=== PATIENT | male | born 2000 | race Caucasian/White ===

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

== ENCOUNTER 2023-03-19 11:57 | Emergency (ER) | payer MEDICARE, OTHER ==
[2023-03-19 12:13] VITALS: BP 156/88; PULSE 81; RESP 18; TEMP 98.2; O2SAT 100
[2023-03-19] MEDS ORDERED: TORAdol 30 mg Injection IM ONE (12:39)
[2023-03-19] MEDS ORDERED: Norflex 60 MG/2 ML IM ONE (12:40)
--- NOTE | 2023-03-19 12:45 | ERPHSYRPT ---
- History of Present Illness Time Seen by Provider: 03/19/23 12:40 Source: patient Exam Limitations: no limitations Patient Subjective Stated Complaint: pt reports left lower back pain that radiates down his left leg, pt reports this pain is chronic in nature r/t an injury while in the . pt has begun work up and is awaiting an appointment with neuro. today pt got up from bed to take his dog outside and began having pain while walking, pt reports pain increased and he was no longer able to bear weight. Triage Nursing Assessment: pt is aox3, pupils perrl, afebrile, resps easy and non labored, radial pulses strong and equal, cap refill < 2 seconds, pt skin pink warm dry. no obvious injury/deformity noted, pt with limited/decreased ROM due to pain. Physician History: pt reports left lower back pain that radiates down his left leg, pt reports this pain is chronic in nature r/t an injury while in the . pt has begun work up and is awaiting an appointment with neuro. today pt got up from bed to take his dog outside and began having pain while walking, pt reports pain increased and he was no longer able to bear weight. 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 Patient recently moved to this area and has MRI done to 3 weeks ago at [facility] afterwards he was being referred to neurosurgeon at [facility] but he does not have an appointment at this point of time schedule. Patient was doing okay he wake up suddenly with severe back pain radiating to his left thigh behind the knee because of sudden onset of pain he fell on the floor could not get out so ambulance was called in and patient was brought into the emergency room. Patient was not excruciating pain especially on the left thigh and knee behind area. Patient denies any trouble urination or bowel bladder incontinence. Timing/Duration: today Method of Injury: bending Quality: radiating Back Pain Radiation: buttocks, upper legs Severity of Pain-Max: moderate Severity of Pain-Current: moderate Modifying Factors: Improves With: nothing Associated Symptoms: denies symptoms Previous symptoms: same symptoms as today Allergies/Adverse Reactions: No Known Drug Allergies Allergy (Verified 03/19/23 12:13) Home Medications: Lisinopril/Hydrochlorothiazide [Lisinopril-Hctz 10-12.5 mg Tab] 1 tab PO DAILY 10/09/16 [History] Diclofenac Sodium 50 mg [Voltaren 50 mg] 50 mg PO UD 03/19/23 [History] Hx Tetanus, Diphtheria Vaccination/Date Given: Yes Hx Influenza Vaccination/Date Given: Yes Hx Pneumococcal Vaccination/Date Given: Yes Immunizations Up to Date: Yes Travel Risk - International Travel Have you traveled outside of the country in past 3 weeks: No - Coronavirus Screening Are you exhibiting any of the following symptoms?: No Close contact with a COVID-19 positive Pt in past 14-21 Days: No - Vaccine Status Have you recieved a Covid-19 vaccination: Yes Gta: Unknown - Vaccination Dates Dates if Unknown: UNK - Review of Systems Constitutional: No Fever, No Chills Eyes: No Symptoms Ears, Nose, & Throat: No Symptoms Respiratory: No Cough, No Dyspnea Cardiac: No Chest Pain, No Edema, No Syncope Abdominal/Gastrointestinal: No Abdominal Pain, No Nausea, No Vomiting, No Diarrhea Genitourinary Symptoms: No Dysuria Musculoskeletal: Back Pain, No Neck Pain Skin: No Rash Neurological: No Dizziness, No Focal Weakness, No Sensory Changes Psychological: No Symptoms Endocrine: No Symptoms All Other Systems: Reviewed and Negative - Past Medical History Pertinent Past Medical History: Yes Neurological History: Migraines ENT History: No Pertinent History Cardiac History: No Pertinent History, Hypertension Respiratory History: Asthma Endocrine Medical History: No Pertinent History Musculoskeletal History: No Pertinent History GI Medical History: No Pertinent History, Colitis History: No Pertinent History Psycho-Social History: No Pertinent History Male Reproductive Disorders: No Pertinent History Other Medical History: EXERCISE INDUCED ASTHMA-HAS BASICALLY OUTGROWN NOW. - Past Surgical History Past Surgical History: Yes Neuro Surgical History: No Pertinent History Cardiac: No Pertinent History Respiratory: No Pertinent History Gastrointestinal: No Pertinent History Genitourinary: No Pertinent History Musculoskeletal: No Pertinent History Male Surgical History: Testicular Surgery, Other Other Surgical History: TESTICULAR TORSION IN DECEMBER - Social History Smoking Status: Never smoker Exposure to second hand smoke: No Drug Use: none Patient Lives Alone: No - Nursing Vital Signs Nursing Vital Signs: Initial Vital Signs Temperature 98.2 F 03/19/23 11:58 Pulse Rate 81 03/19/23 11:58 Respiratory Rate 18 03/19/23 11:58 Blood Pressure 156/88 03/19/23 11:58 O2 Sat by Pulse Oximetry 100 03/19/23 11:58 Pain Scale Pain Intensity [Back] 10 Pain Intensity 10 - Physical Exam General Appearance: no apparent distress, alert Eye Exam: PERRL/EOMI, eyes nml inspection Neck Exam: normal inspection, non-tender, supple, full range of motion, No meningismus, No midline tenderness Respiratory Exam: normal breath sounds, lungs clear, No respiratory distress Cardiovascular Exam: regular rate/rhythm, normal heart sounds Gastrointestinal Exam: soft, No tenderness, No mass Extremity Exam: normal inspection, normal range of motion, parasthesia (left thigh), No calf tenderness, No pedal edema Neurologic Exam: alert, oriented x 3, cooperative, 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 as tested, normal mood/affect, nml station & gait, sensation nml, No motor deficits, No abnormal cerebellar tests, No abnormal 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 Skin Exam: normal color, warm, dry, No rash SpO2 Interpretation: normal SpO2: 100 O2 Delivery: Room Air - Course Nursing assessment & vital signs reviewed: Yes Ordered Tests: Medication Summary Generic Name Dose Route Start Last Admin Trade Name Angy PRN Reason Stop Dose Admin Ketorolac Tromethamine 60 mg 03/19/23 12:39 Ketorolac Tromethamine 30 Mg/Ml Inj IM 03/19/23 12:40 STAT ONE Orphenadrine Citrate 60 mg 03/19/23 12:40 Orphenadrine Citrate 60 Mg/2 Ml Vial IM 03/19/23 12:41 STAT ONE - Progress Progress: improved, pain not gone completely Counseled pt/family regarding: diagnosis, need for follow-up - Departure Departure Disposition: Home Clinical Impression: Left-sided low back pain with sciatica Qualifiers: Chronicity: acute Sciatica laterality: sciatica of left side Qualified Code(s): M54.42 - Lumbago with sciatica, left side Condition: Stable Critical Care Time: No Referrals: NIYA ZULUAGA MD [Primary Care Provider] - Follow up other (Follow up with [facility]) Instructions: Low Back Pain (DC), Sciatica (DC) Additional Instructions: Discharge/Care Plan GALE JOLLY was seen on 03/19/23 in the Emergency Room. The patient was counseled regarding Diagnosis,Lab results, Imaging studies, need for follow up and when to return to the Emergency Room. Prescriptions given: Discharge Note I have spoken with the patient and/or caregivers. I have explained the patient's condition, diagnosis and treatment plan based on the information available to me at this time. I have answered the patient's and/or caregiver's questions and addressed any concerns. The patient and/or caregivers have as good understanding of the patient's diagnosis, condition and treatment plan as can be expected at this point. The vital signs have been stable. The patient's condition is stable and appropriate for discharge from the emergency department. The patient will pursue further outpatient evaluation with the primary care physician or other designated or consulting physician as outlined in the discharge instructions. The patient and/or caregivers are agreeable to this plan of care and follow-up instructions have been explained in detail. The patient and/or caregivers have received these instruction. The patient/and or caregivers are aware that any significant change in condition or worsening of symptoms should prompt an immediate return to this or the closest emergency department or call 911. GALE JOLLY was seen on 03/19/23 n the Emergency Room. At that time you were treated for an emergent condition, during your visit Laboratory, Radiology and/or other procedures may have been ordered. It is very important that you follow-up with your Primary Care Physician NIYA ZULUAGA within the next 24-48 hours to review your Emergency Room visit and the final results of testing that was ordered. Some test results such as Urine Cultures, Blood Cultures, and other cultures if ordered will not be finalized for 24-48 hours. If you do not have a Primary Care Provider please call the medical records department at [phone] ext [phone] to obtain a copy of your results or you may sign into our patient portal to obtain these results by visiting us @ [email or web address] and completing the following steps: 1. Click on the Patient Portal link 2. Click the Patient Self Enrollment Link to complete the enrollment form and entering your 3. Once the enrollment form is completed you will receive an email with a temporary ID and password at the email address you provided. 4. Next choose a user name and password. Your user name must be at least 4 characters long and your password must be at least 4 characters long. 5. Choose a security question from the list and provide your answer to the question. If you already have signed into the Health Portal you may access your Health Care Information 24/01 by the following steps: 1. Login to our website @ [email or web address] 2. Enter your original user name and password. FAQS The [facility] Health Portal is an online tool that contains your Lab Results, Radiology Reports, Visit History, Discharge Instructions and Health Summary Lab and Radiology Results will not be available for 72 hours on the portal. The Portal is a secure site, passwords are encryted and URLs are re-written so they cannot be copied and pasted. You and authorized family members are the only ones who can access your Portal. Also there is a timeout feature that protects your information if you leave the Portal page open. If you have technical difficulty please use the Contact Us link on the page this will allow you to submit any questions you have regarding the Portal or you may contact the Medical Record Department at [phone] ext [phone].
[2023-03-19] MEDS ORDERED: TORAdol 30 mg Injection ONE (12:51)
[2023-03-19] MEDS ORDERED: Norflex 60 MG/2 ML ONE (12:51)
== END 2023-03-19 13:21 | disposition home or self-care (01) ==
LOC: ED 11:57
DX: M54.42 Lumbago with sciatica, left side (principal); I10 Essential (primary) hypertension; Z79.899 Other long term (current) drug therapy
CPT/HCPCS: 96372; 99283; J1885; J2360

== ENCOUNTER 2023-06-08 12:51 | Day surgery (SDC) | payer MEDICARE, OTHER ==
[2023-06-08] MEDS ORDERED: Sodium Chloride 0.9(Preservative Free) 10 ML IJ ONE (12:52)
[2023-06-08] MEDS ORDERED: Decadron 4 MG INJ IV ONE (12:52)
[2023-06-08] MEDS ORDERED: DIPRIVAN 200 MG/20 ML IV ONE ×2 (15:53→16:01)
[2023-06-08] MEDS ORDERED: Lactated Ringers 1,000 ML IV ONE (16:10)
--- NOTE | 2023-06-08 16:58 | XRAY ---
Indication: Left L4-S1 transforaminal ROLAND. Intraoperative fluoroscopy provided for 42 seconds. 5 digital spot image submitted for interpretation demonstrates posterior needle tips projecting over the expected left L4 and L5 nerve roots. Small amount of contrast injected for needle tip placement. Correlate with intraoperative findings/report.
--- NOTE | 2023-06-08 17:03 | XRAY ---
42 seconds of fluoroscopy was used in surgery for a left L4-S1 transforaminal ROLAND.
== END 2023-06-08 16:20 | disposition home or self-care (01) ==
LOC: SDC-PAIN 12:51
PROVIDERS: ATTEND Psychiatry & Neurology Pain Medicine
DX: M54.16 Radiculopathy, lumbar region (principal)
CPT/HCPCS: 64483; 64484; 72100; 77003; J1100; J2704; Q9966

== ENCOUNTER 2023-08-11 15:08 | Day surgery (SDC) | payer OTHER ==
[2023-08-11] MEDS ORDERED: Sodium Chloride 0.9(Preservative Free) 10 ML IJ ONE (15:09)
[2023-08-11] MEDS ORDERED: Decadron 4 MG INJ IV ONE (15:09)
[2023-08-11] MEDS ORDERED: XYLOCAINE-MPF 1% 5ML SDV IJ ONE (15:09)
[2023-08-11] MEDS ORDERED: Depo-Medrol 40 MG/ML IM ONE (15:09)
[2023-08-11] MEDS ORDERED: DIPRIVAN 200 MG/20 ML IV ONE ×2 (15:40→15:52)
[2023-08-11] MEDS ORDERED: Versed 2 MG/2 ML Injection ONE (15:40)
[2023-08-11] MEDS ORDERED: Lactated Ringers 1,000 ML IV ONE (16:01)
--- NOTE | 2023-08-11 17:08 | XRAY ---
Indication: Caudal ROLAND. Intraoperative fluoroscopy provided for 18 seconds. 2 digital spot images submitted for interpretation demonstrates caudal needle tip projecting mid sacrum. Small amount of contrast injected for needle tip placement. Correlate with intraoperative findings/report.
--- NOTE | 2023-08-11 17:08 | XRAY ---
Indication: Left piriformis injection. Intraoperative fluoroscopy provided for 11 seconds. Single digital spot image submitted for interpretation demonstrates posterior needle tip projecting over left piriformis. Small amount of contrast injected for needle tip placement. Correlate with intraoperative findings/report.
--- NOTE | 2023-08-12 08:35 | XRAY ---
11 seconds of fluoroscopy was used in surgery for a left piriformis injection.
--- NOTE | 2023-08-12 08:35 | XRAY ---
18 seconds of fluoroscopy was used in surgery for a caudal ROLAND.
== END 2023-08-11 16:20 | disposition home or self-care (01) ==
LOC: SDC-PAIN 15:08
PROVIDERS: ATTEND Psychiatry & Neurology Pain Medicine
DX: M54.16 Radiculopathy, lumbar region (principal); M79.18 Myalgia, other site
CPT/HCPCS: 20552; 62323; 72170; 72220; 76942; 77002; 77003; J1030; J1100; J2250; J2704; Q9966